=== PATIENT | male | born 1945 | race Caucasian/White ===

== ENCOUNTER 2020-02-20 10:01 | Inpatient (IN) | payer MEDICARE ==
[~2020-02-20] VITALS: Ht 182.9 cm; Wt 71.7 kg
[~2020-02-20 10:01] MED LIST: ADALAT CC60 MG PO; AMBIEN5 MG PO; CARVEDILOL3.125 M1 PO; CLOPIDOGREL75 M1 PO; DETROL LA4 MG PO; DOCUSATE SODIU250 MG PO; DUL10S RC; FLO4 PO; GLIPIZIDE5 MG PO; LIPITOR80 MG PO; LORAZEPAM1 MG PO; RESTORIL15 MG PO; ZESTRIL5 MG PO
[2020-02-20 10:04] VITALS: Ht 182.9 cm; Wt 71.7 kg
[2020-02-20 11:06] LABS: ALKALINE PHOSPHATASE 95 U/L (46-116); ALT/SGPT 34 U/L (16-63); AST/SGOT 26 U/L (15-37); BILIRUBIN TOTAL 0.5 mg/dL (0.20-1.00); CALCIUM 9.1 mg/dL (8.5-10.1); CARBON DIOXIDE 27.8 mmol/L (21-32); CHLORIDE SERUM 102 mmol/L (98-107); CREATININE SERUM 1.1 mg/dL (0.7-1.3); GLUCOSE SERUM 175 mg/dL (74-106); POTASSIUM SERUM 3.9 mmol/L (3.5-5.1); SODIUM SERUM 136 mmol/L (136-145)
[2020-02-20 11:09] LABS: ALBUMIN 3.2 g/dL (3.4-5.0); CHOLESTEROL 89 mg/dL (<200)
[2020-02-20 11:44] LABS: PLATELET COUNT 257 x10^3mcL (130-400); RED CELL DISTRIBUTION WIDTH 13.4 % (11.5-14.5)
[2020-02-20 11:45] LABS: BASOPHIL % 0.5 % (0-2)
[2020-02-20 12:34] LABS: microscopic required? YES; urine erythrocyte 3+ (NEGATIVE)
[2020-02-20 18:57] VITALS: BP 147/88
[2020-02-20 20:51] VITALS: BP 161/88
[2020-02-21 05:10] VITALS: BP 142/86
[2020-02-21 07:16] LABS: BASOPHIL % 0.7 % (0-2); PLATELET COUNT 244 x10^3mcL (130-400); RED CELL DISTRIBUTION WIDTH 13.8 % (11.5-14.5)
[2020-02-21 07:36] LABS: ALKALINE PHOSPHATASE 86 U/L (46-116); ALT/SGPT 28 U/L (16-63); AST/SGOT 36 U/L (15-37); BILIRUBIN TOTAL 0.54 mg/dL (0.20-1.00); CALCIUM 8.8 mg/dL (8.5-10.1); CARBON DIOXIDE 25.5 mmol/L (21-32); CHLORIDE SERUM 106 mmol/L (98-107); CREATININE SERUM 0.9 mg/dL (0.7-1.3); GLUCOSE SERUM 71 mg/dL (74-106); MAGNESIUM 1.9 mg/dL (1.8-2.4); POTASSIUM SERUM 3.9 mmol/L (3.5-5.1); SODIUM SERUM 138 mmol/L (136-145); TOTAL PROTEIN, SERUM 6.3 g/dL (6.4-8.2)
[2020-02-21 07:44] LABS: ALBUMIN 2.9 g/dL (3.4-5.0)
[2020-02-21 09:16] VITALS: BP 144/81
[2020-02-21 17:41] VITALS: BP 142/79
[2020-02-21 18:17] LABS: UA SPECIFIC GRAVITY 1.025 (1.005-1.035); microscopic required? YES; urine erythrocyte 2+ (NEGATIVE)
[2020-02-21 20:09] VITALS: BP 133/76
[2020-02-22 06:00] VITALS: BP 155/86
[2020-02-22 07:34] VITALS: BP 156/104
[2020-02-22 07:53] LABS: CALCIUM 9.2 mg/dL (8.5-10.1); CARBON DIOXIDE 28.3 mmol/L (21-32); CHLORIDE SERUM 106 mmol/L (98-107); CREATININE SERUM 0.9 mg/dL (0.7-1.3); GLUCOSE SERUM 87 mg/dL (74-106); SODIUM SERUM 140 mmol/L (136-145)
[2020-02-22 12:04] VITALS: BP 129/82
[2020-02-22 21:18] VITALS: BP 153/82
[2020-02-23 05:42] VITALS: BP 155/88
[2020-02-23 08:03] VITALS: BP 145/97
[2020-02-23] MEDS ORDERED: CEFTRIAXON1 GM/50 M1 IV (09:36)
[2020-02-23 12:27] VITALS: BP 141/92
[2020-02-23 14:22] VITALS: BP 139/84
[2020-02-23 16:49] VITALS: BP 139/84
== END 2020-02-23 17:38 | DRG 872 ==
LOC: ED 10:01 → MU 13:28
PROVIDERS: Internal Medicine Pulmonary Disease; Specialist; ADMIT Internal Medicine Pulmonary Disease
DX: A41.9 Sepsis, unspecified organism (principal); N39.0 Urinary tract infection, site not specified; E44.0 Moderate protein-calorie malnutrition; I69.354 Hemiplegia and hemiparesis following cerebral infarction affecting left non-dominant side; I11.9 Hypertensive heart disease without heart failure; I25.10 Atherosclerotic heart disease of native coronary artery without angina pectoris; E11.9 Type 2 diabetes mellitus without complications; E86.0 Dehydration; K59.00 Constipation, unspecified; R63.4 Abnormal weight loss; G47.00 Insomnia, unspecified; E78.5 Hyperlipidemia, unspecified; G89.29 Other chronic pain; M54.30 Sciatica, unspecified side; N40.0 Benign prostatic hyperplasia without lower urinary tract symptoms; Z68.20 Body mass index [BMI] 20.0-20.9, adult; Z99.3 Dependence on wheelchair; Z82.3 Family history of stroke
CPT/HCPCS: 82962; 87804; 97110-GP; 97530-GP; G0378; G0480; J0696; J1644; J7120; Q0092

== ENCOUNTER 2020-05-15 20:25 | Emergency (ER) | payer MEDICARE ==
[~2020-05-15] VITALS: Ht 182.9 cm; Wt 59.9 kg
[~2020-05-15 20:25] MED LIST changes: +CEFTRIAXON1 GM/50 M1 IV
[2020-05-15 20:39] VITALS: Ht 182.9 cm; Wt 59.9 kg
[2020-05-15 21:58] LABS: UA SPECIFIC GRAVITY 1.015 (1.005-1.035); microscopic required? YES; urine erythrocyte 2+ (NEGATIVE)
[2020-05-15 22:46] VITALS: BP 138/84
== END 2020-05-15 22:46 | disposition home or self-care (01) ==
LOC: ED 20:25
PROVIDERS: Emergency Medicine
DX: N40.1 Benign prostatic hyperplasia with lower urinary tract symptoms (principal); R33.9 Retention of urine, unspecified; I10 Essential (primary) hypertension; R33.8 Other retention of urine